=== PATIENT | female | born 1945 | race Caucasian/White ===

== ENCOUNTER 2025-06-04 16:30 | Emergency (ER) | payer MEDICARE, SELFPAY ==
[2025-06-04 16:35] VITALS: BP 156/73; PULSE 74; RESP 18; TEMP 36.3; O2SAT 96; BMI 32.9
--- NOTE | 2025-06-04 16:39 | DI.RAD.S_ITS ---
PROCEDURE: XR TOE RT MIN 2V INDICATIONS: pain TECHNIQUE: AP view of the foot and two views of the 4th toe acquired. COMPARISON: None. FINDINGS: Bones: Minimally displaced fracture of the 4th proximal phalangeal shaft. Suspected prior resection of the 5th proximal phalangeal head. Generalized bony demineralization. Soft tissues: No suspicious soft tissue densities. IMPRESSION: Minimally displaced fracture of the 4th proximal phalangeal shaft. Approved by: Gui Justin M.D. on 06/04/2025 at 17:08
--- NOTE | 2025-06-04 17:47 | PC.NURSE ---
Pt is ambulatory to room. Steady gait noted. Updated pt.
--- NOTE | 2025-06-04 18:11 | ED.LOWEXIN ---
HPI - Extremity Injury (Lower) <Michelle Adame PA-C - Last Filed: 06/04/25 20:03> General Chief Complaint: Extremity Injury, Lower Stated Complaint: right fourth toe pain Time Seen by Provider: 06/04/25 17:28 Source: patient Mode of arrival: Ambulatory History of Present Illness HPI Narrative: Ms. Mares is a pleasant 80-year-old female with a past medical history of CKD who presents to the emergency department for right 4th toe pain after stubbing it earlier today. Patient states that she was walking at home barefoot when she stubbed her right foot on the leg of a table. She has neuropathy but she was able to feel pain of the 4th toe and is worried that she might have broke it. She has been ambulatory since then. No deformities, open wounds or changes in her sensation. Related Data Allergies Allergy/AdvReac Type Severity Reaction Status Date / Time No Known Drug Allergies Allergy Verified 06/04/25 16:39 Review of Systems <Michelle Adame PA-C - Last Filed: 06/04/25 20:03> Review of Systems ROS Unobtainable: All systems reviewed & are unremarkable except as noted in HPI and below Patient History <Michelle Adame PA-C - Last Filed: 06/04/25 20:03> Social History Smoking Status: Never smoker Smoking Status: Never smoker Exam <Michelle Adame PA-C - Last Filed: 06/04/25 20:03> Narrative Exam Narrative: GENERAL: 80 year old patient appears stated age. Elderly patient, in no acute distress. HEAD: Atraumatic. Normocephalic. CARDIOVASCULAR: Regular rate RESPIRATORY: ?Nonlabored respirations. ?Speaking in clear, full sentences. ?Clear to auscultation.? EXTREMITIES: Patient has tenderness to palpation of the right 4th toe specifically over the proximal phalanx. There are no anatomical deformities, bruising, open wounds. Brisk cap refill intact distal to the wound. No tenderness to palpation of the dorsal midfoot or the remainder of the toes. Strong DP and PT pulse. NEURO: AOx3. ?Clear speech. ?Sensation intact to light touch on dorsal and plantar aspect of the foot including on distal tip of 4th toe. SKIN: No rash or erythema of visible areas Initial Vital Signs Initial Vital Signs: Vital Signs Temperature 97.4 F L 06/04/25 16:35 Pulse Rate 74 06/04/25 16:35 Respiratory Rate 18 06/04/25 16:35 Blood Pressure 156/73 H 06/04/25 16:35 Pulse Oximetry 96 06/04/25 16:35 Oxygen Delivery Method Room Air 06/04/25 16:35 <Luisana Rojas MD - Last Filed: 06/04/25 23:59> Initial Vital Signs Initial Vital Signs: Vital Signs Temperature 97.4 F L 06/04/25 16:35 Pulse Rate 74 06/04/25 16:35 Respiratory Rate 18 06/04/25 16:35 Blood Pressure 156/73 H 06/04/25 16:35 Pulse Oximetry 96 06/04/25 16:35 Oxygen Delivery Method Room Air 06/04/25 16:35 Course <Michelle Adame PA-C - Last Filed: 06/04/25 20:03> Orders Ordered: ED Orders 06/04/25 16:39 XR toe RT min 2V Stat Vital Signs Vital signs: Vital Signs - 8 hr 06/04/25 16:35 06/04/25 18:26 Temperature 97.4 F L 98.4 F Pulse Rate 74 68 Respiratory Rate 18 19 Blood Pressure 156/73 H 165/78 H Pulse Oximetry 96 98 Oxygen Delivery Method Room Air Room Air <Luisana Rojas MD - Last Filed: 06/04/25 23:59> Orders Ordered: ED Orders 06/04/25 16:39 XR toe RT min 2V Stat Vital Signs Vital signs: Vital Signs - 8 hr 06/04/25 16:35 06/04/25 18:26 Temperature 97.4 F L 98.4 F Pulse Rate 74 68 Respiratory Rate 18 19 Blood Pressure 156/73 H 165/78 H Pulse Oximetry 96 98 Oxygen Delivery Method Room Air Room Air MDM - Extremity Injury (Lower) <MCKAY Chase Last Filed: 06/04/25 20:03> Medical Records Medical records narrative: No records available for review Imaging Data Right foot x-ray: My Impression: On my independent interpretation of right foot x-ray there is a fracture of the shaft of the 4th proximal phalanx. Radiologist's Impression: PROCEDURE: XR TOE RT MIN 2V INDICATIONS: pain TECHNIQUE: AP view of the foot and two views of the 4th toe acquired. COMPARISON: None. FINDINGS: Bones: Minimally displaced fracture of the 4th proximal phalangeal shaft. Suspected prior resection of the 5th proximal phalangeal head. Generalized bony demineralization. Soft tissues: No suspicious soft tissue densities. IMPRESSION: Minimally displaced fracture of the 4th proximal phalangeal shaft. Approved by: Gui Justin M.D. on 06/04/2025 at 17:08 [facility] Narrative Medical decision making narrative: 80-year-old female with a past medical history of CKD, peripheral neuropathy who presents to the emergency department for right 4th toe pain after stubbing it earlier today. Differential diagnosis includes but is not limited to toe fracture, sprain, strain, contusion, dislocation etc. On exam the patient is in no acute distress, nontoxic appearing, vital signs appropriate. She has tenderness to palpation of the right 4th toe with no deformities, no open wounds. Brisk cap refill on tip of 4th toe. X-ray right foot obtained in triage reveals minimally displaced fracture of the 4th proximal phalangeal shaft. Patient's toes were rafa taped and she was placed into a postoperative shoe. She feels comfortable ambulating with her walker. Discussed follow up with PCP/[facility]. Discussed ER return precautions, rice therapy, Tylenol for pain. Patient verbalized understanding of all information and is agreeable with the plan, she is ambulatory and stable for discharge home. Discharge Plan Departure Patient Disposition: Home Clinical Impression: Fracture of toe Qualifiers: Encounter type: initial encounter Toe: lesser toe Fracture type: closed Phalanx: proximal Fracture alignment: displaced Laterality: right Qualified Code(s): S92.511A - Displaced fracture of proximal phalanx of right lesser toe(s), initial encounter for closed fracture Instructions: DI for Toe Fracture Activity Restrictions/Additional Instructions: Dear Ms. Mares, Thank you for coming to the emergency department. Today your x-ray revealed a minimally displaced fracture of the 4th proximal toe. Please keep the toe taped to its neighbors to keep it straight, and use the postoperative shoe. Broken toes take about 4-6 weeks to heal. Please follow up with your primary care doctor or [facility] for further management. Please use RICE therapy for your pain in addition to acetaminophen. Rest the painful area. Ice the area of pain/swelling for at least 15 minutes, 4x a day. Compress the area of swelling using a brace, wrap, or splint if applied. Elevate the painful or swollen extremity by supporting it above the level of the heart with pillows when sitting or laying. Please follow up with your primary care doctor within the next 2-3 days for ER follow-up. (If you do not have a PCP you can call [phone]. ?to schedule an appointment with an [facility] Primary Care Provider) IF YOU DEVELOP ANY NEW OR WORSENING SYMPTOMS, RETURN TO THE ER! Please read the attached instructions, they highlight more specific treatments and interventions for you at home. Thank you for letting me participate in your care, Michelle Adame PA-C Referrals: Santiago Woody MD [Physician, Orthopedic Surgery] Referral Note: broken toe Stand Alone Forms: Patient Portal/API ED Sign-out <Luisana Rojas MD - Last Filed: 06/04/25 23:59> Cosign ED Attending Cosignature Attestation: I was immediately available in the department for consultation throughout this patient's visit. Luisnaa Rojas MD
[2025-06-04 18:26] VITALS: BP 165/78; PULSE 68; RESP 19; TEMP 36.9; O2SAT 98
== END 2025-06-04 18:28 | disposition home or self-care (01) ==
PROVIDERS: Emergency Provider Physician Assistant
DX: S92.511A Displaced fracture of proximal phalanx of right lesser toe(s), initial encounter for closed fracture (principal); W22.8XXA Striking against or struck by other objects, initial encounter
CPT/HCPCS: 73660; 99281; 99283

== ENCOUNTER → 2025-07-05 10:26 | Outpatient (CLI) | payer OTHER, SELFPAY ==
--- NOTE | 2025-07-05 10:29 | DI.RAD.S_ITS ---
PROCEDURE: XR TOE RT MIN 2V INDICATIONS: RT TOE BROKEN F/U TECHNIQUE: 3 views of the 4th toe(s) acquired. COMPARISON: Merged With [facility], , XR TOE RT MIN 2V, 06/04/2025, 16:39. FINDINGS: Bones: Similar alignment of the oblique 4th toe proximal phalangeal proximal shaft fracture with similar less than 1/2 shaft width displacement. Diffuse osseous demineralization. No acute fracture. Soft tissues: No suspicious soft tissue densities. IMPRESSION: Similar alignment of the right 4th toe proximal phalangeal proximal shaft oblique fracture. Dictated by: Nino Chavez M.D. on 07/05/2025 at 11:06 Approved by: Nino Chavez M.D. on 07/05/2025 at 11:07
== END ==
PROVIDERS: PCP Internal Medicine; Referring Provider Internal Medicine; Visit Provider Podiatrist Foot & Ankle Surgery
DX: S92.511D Displaced fracture of proximal phalanx of right lesser toe(s), subsequent encounter for fracture with routine healing (principal); X58.XXXD Exposure to other specified factors, subsequent encounter; M79.671 Pain in right foot
CPT/HCPCS: 73660